=== PATIENT | female | born 1970 | race Caucasian/White ===

== ENCOUNTER 2020-12-02 03:47 | Inpatient (IN) | payer BC ==
[2020-12-02] MEDS ORDERED: NALOXONE 0.4 MG/ML 1 ML VIAL IV PRN (04:18)
[2020-12-02] MEDS ORDERED: HYDROmorphone 2 MG TAB PO PRN (04:18)
[2020-12-02] MEDS ORDERED: ONDANSETRON 4 MG/2 ML VIAL IVP PRN ×2 (04:18→09:06)
[2020-12-02] MEDS ORDERED: HYDROmorphone 0.5 MG/0.5 ML SYRINGE IVP PRN (04:18)
--- NOTE | 2020-12-02 04:24 | ED ---
Abdominal Pain HPI - General Chief Complaint: Abdominal Pain Stated Complaint: Abd Pain Time Seen by Provider: 12/02/20 03:58 Source: RN/MD, EMS Mode of arrival: EMS - History of Present Illness Initial Comments: This patient is a 50-year-old woman who arrives here as a transfer from [facility]. Patient has history of reportedly having Sonia-en-Y gastric bypass in [place] 10 years ago. She has not seen her surgeon in 7 years. She had gone there in the evening to be evaluated for abdominal pain. Patient states that she had eaten around 3 in the afternoon, and then noticed that she was having pain in the right upper quadrant, also developed nausea and vomiting. When the symptoms did not resolve she went to the other hospital. While there she had labs that showed white blood cell count 11,800. She had computed tomography scan that appeared to show small bowel obstruction at the surgical anastomosis. Patient had IV fluid, antiemetics, analgesics and then an NG tube placed and she was transferred here. The patient states that she is feeling moderately better however she has developed an aching headache. MD Complaint: abdominal pain Onset/Timin -: hour(s) Location: RUQ Radiation: none Migration to: no migration Severity: moderate Quality: aching Consistency: constant Improves With: nothing Worsens With: nothing Associated Symptoms: nausea, vomiting - Related Data Home Medications Medication Instructions Recorded Confirmed ALPRAZolam [Xanax] 0.5 mg PO TID PRN 12/02/20 12/02/20 Albuterol Sulfate [Proair Hfa] 1 - 2 puff INHALATION Q6HR PRN 12/02/20 12/02/20 Fluticasone/Salmeterol [Advair 1 inhalation PO BID 12/02/20 12/02/20 100-50 Diskus] Montelukast Sodium [Singulair] 10 mg PO HS 12/02/20 12/02/20 busPIRone HCl [Buspar] 10 mg PO DAILY 12/02/20 12/02/20 Allergies Allergy/AdvReac Type Severity Reaction Status Date / Time No Known Allergies Allergy Verified 12/02/20 03:55 Review of Systems ROS Statement: Those systems with pertinent positive or pertinent negative responses have been documented in the HPI. ROS Other: All systems not noted in ROS Statement are negative. Constitutional: Denies: fever, chills Eyes: Denies: eye pain, vision change Respiratory: Denies: cough, dyspnea Cardiovascular: Denies: chest pain, palpitations Gastrointestinal: Reports: abdominal pain, nausea, vomiting. Denies: diarrhea, hematemesis, melena, hematochezia Genitourinary: Denies: dysuria, hematuria Musculoskeletal: Denies: back pain Skin: Denies: rash Neurological: Reports: as per HPI, headache. Denies: weakness, numbness, paresthesias, confusion Past Medical History Past Medical History: No Reported History History of Any Multi-Drug Resistant Organisms: None Reported Past Surgical History: Bariatric Surgery, Tubal Ligation Past Psychological History: Anxiety Smoking Status: Former smoker Past Alcohol Use History: Occasional Past Drug Use History: None Reported General Exam General appearance: alert, in no apparent distress Head exam: Present: atraumatic, normocephalic Eye exam: Present: normal appearance. Absent: scleral icterus, conjunctival injection ENT exam: Present: normal oropharynx, other (NG tube in place) Neck exam: Present: normal inspection Respiratory exam: Present: normal lung sounds bilaterally. Absent: respiratory distress, wheezes, rales, rhonchi, stridor Cardiovascular Exam: Present: regular rate, normal rhythm, normal heart sounds. Absent: systolic murmur, diastolic murmur, rubs, gallop GI/Abdominal exam: Present: soft. Absent: distended, tenderness, guarding, rebound, rigid, mass Extremities exam: Present: normal inspection, normal capillary refill. Absent: pedal edema, calf tenderness Back exam: Present: normal inspection. Absent: tenderness, CVA tenderness (R), CVA tenderness (L) Neurological exam: Present: alert Skin exam: Present: warm, dry, intact, normal color. Absent: rash Course Vital Signs 12/02/20 03:50 Temperature 99.4 F Pulse Rate 85 Respiratory 16 Rate Blood Pressure 161/104 O2 Sat by Pulse 96 Oximetry Disposition Clinical Impression: Small bowel obstruction Disposition: ADMITTED IP TO THIS HOSP Condition: Fair Is patient prescribed a controlled substance at d/c from ED?: No Referrals: Alvin Rich MD [Primary Care Provider] - 1-2 days
[2020-12-02] MEDS ORDERED: HYDROmorphone 0.5 MG/0.5 ML SYRINGE IVP STA (04:27)
[2020-12-02] MEDS: SODIUM CHLORIDE 0.9% 1,000 ML IV SCH ×2 (05:46→14:49)
--- NOTE | 2020-12-02 05:53 | P.HPIM ---
History of Present Illness H&P Date: 12/02/20 Chief Complaint: repeated nausea and vomiting , abd pain 50 year old female with COPD, history of Sonia-en-Y surgery Age and comes in with sudden onset nausea or vomiting and abdominal pain she reports that her last meal was around 3 PM before that she was feeling completel y fine and then around evening time she started having severe right upper quadrant abdominal pain nonradiating severity sharp in nature associated with repeated nausea and vomiting and chills because of pain. Vomiting is nonbloody, nonbilious, it consisted of food particles of the spicy chips that she has. She claims that she is not passing gases denies any diarrhea. Otherwise she denies any fevers denies any coughing or chest pain denies any trouble breathing denies any sick contacts denies any urinary changes. She claims to be at her baseline status of health up until this evening. She went to [facility] who did initial workup patient received IV fluid and some supportive care., NG tube. Computed tomography scan suggested obstruction around surgical anastomosis site with the small bowel. Patient transferred to our facility for further care Blood work was overall unremarkable except for slightly elevated white count at 11.8 Review of Systems Pertinent positives as noted in HPI. All other systems were reviewed and are negative Past Medical History Past Medical History: COPD History of Any Multi-Drug Resistant Organisms: None Reported Past Surgical History: Bariatric Surgery, Tubal Ligation Past Psychological History: Anxiety Smoking Status: Former smoker Past Alcohol Use History: Occasional Past Drug Use History: None Reported - Past Family History Family Family Medical History: No Reported History Medications and Allergies Home Medications Medication Instructions Recorded Confirmed Type ALPRAZolam [Xanax] 0.5 mg PO TID PRN 12/02/20 12/02/20 History Albuterol Sulfate [Proair Hfa] 1 - 2 puff INHALATION Q6HR PRN 12/02/20 12/02/20 History Fluticasone/Salmeterol [Advair 1 inhalation PO BID 12/02/20 12/02/20 History 100-50 Diskus] Montelukast Sodium [Singulair] 10 mg PO HS 12/02/20 12/02/20 History busPIRone HCl [Buspar] 10 mg PO DAILY 12/02/20 12/02/20 History Allergies Allergy/AdvReac Type Severity Reaction Status Date / Time No Known Allergies Allergy Verified 12/02/20 03:55 Physical Exam Vitals: Vital Signs Temp Pulse Resp BP Pulse Ox 12/02/20 04:45 82 16 154/92 96 12/02/20 03:50 99.4 F 85 16 161/104 96 Intake and Output 12/01/20 12/01/20 12/02/20 14:59 22:59 06:59 Other: Weight 78.018 kg Constitutional: No acute distress, conversant, pleasant, NG tube in place Eyes: Anicteric sclerae, moist conjunctiva, Pupils equal round reactive to light ENMT: NC/AT Oropharynx clear, no erythema, or exudates Neck: Supple, FROM, no masses, or JVD No carotid bruits No thyromegaly Lungs: Clear to auscultation Clear to percussion Normal respiratory effort, no accessory muscle use Cardiovascular: Heart regular in rate and rhythm, No murmurs, gallops, or rubs No peripheral edema Abdominal: Soft Nontender, no guarding, rebound or rigidity Abdomen moving with respiration Hyperactive bowel sounds No hepatomegaly, No splenomegaly No palpable mass No abdominal wall hernia noted Skin: Normal temperature, tone, texture, turgor No induration No subcutaneous nodules No rash, lesions No ulcers Extremities: No digital cyanosis No clubbing Pedal pulses intact and symmetrical Radial pulses intact and symmetrical No calf tenderness Psychiatric: Alert and oriented to person, place and time Appropriate affect fair judgement Neuro Muscles Strength 5/5 in all 4 extremities Sensation to light touch grossly present throughout Cranial nerves II-XII grossly intact No focal sensory deficits Lymphatics: no palpable cervical or supraclavicular , or inguinal lymph nodes Assessment and Plan Assessment: Small bowel obstruction Supportive care IV fluid hydration Nothing by mouth IV PPI IV Dilaudid for pain control Surgery consult NG tube in place for low intermittent suctioning Follow-up labs metabolic panel COPD compensated Resume inhalers CODE STATUS: Full code DVT prophylaxis: Mechanical Discussed with: Patient, ER Anticipated length of stay more than [address]: Home A total of 65 minutes was spent on the care of this complex patient more than 50% of the time was spent in counseling and care coordination.
[2020-12-02] MEDS: HYDROmorphone 1 MG/ML 1 ML SYRINGE IVP PRN (08:49)
[2020-12-02] MEDS: PANTOPRAZOLE 40 MG/10 ML VIAL IV SCH (08:56)
[2020-12-02 08:57] LABS: ALT 24 U/L (4-34); AST 31 U/L (14-36); African American GFR (CKD) >90 (>60 ml/min/1.73 sqM); Albumin 3.7 g/dL (3.5-5.0); Alkaline Phosphatase 90 U/L (38-126); Anion Gap 6 mmol/L; Blood Urea Nitrogen 14 mg/dL (7-17); Calcium 8.9 mg/dL (8.4-10.2); Carbon Dioxide 22 mmol/L (22-30); Chloride 113 mmol/L (98-107); Glucose 88 mg/dL (74-99); Non-African American GFR(CKD) >90 (>60 ml/min/1.73 sqM); Potassium 4.3 mmol/L (3.5-5.1); Sodium 141 mmol/L (137-145); Total Bilirubin 0.4 mg/dL (0.2-1.3); Total Protein 6.1 g/dL (6.3-8.2)
[2020-12-02] MEDS ORDERED: PROPOFOL 10 MG/ML 20 ML VIAL IV ONE (09:05)
[2020-12-02 09:07] LABS: Basophils % (A) 1 %; Eosinophils # (A) 0.2 k/uL (0-0.7); Eosinophils % (A) 2 %; HCT 44.6 % (34.0-46.0); HGB 13.9 gm/dL (11.4-16.0); Lymphocytes % (A) 23 %; MCH 28.6 pg (25.0-35.0); MCHC 31.2 g/dL (31.0-37.0); MCV 91.6 fL (80.0-100.0); Mean Platelet Volume 6.6; Monocytes # (A) 0.4 k/uL (0-1.0); Monocytes % (A) 4 %; Neutrophils % (A) 69 %; Platelet Count 361 k/uL (150-450); RBC 4.88 m/uL (3.80-5.40); RDW 14.3 % (11.5-15.5); WBC 8.6 k/uL (3.8-10.6)
[2020-12-02] MEDS: SYMBICORT 80-4.5 MCG INHALER INHALATION SCH ×2 (09:07→19:34)
--- NOTE | 2020-12-02 11:43 | P.GSCN ---
History of Present Illness Consult date: 12/02/20 History of present illness: CHIEF COMPLAINT: Abdominal pain HISTORY OF PRESENT ILLNESS: This is a 50-year-old female with a known surgical history of Sonia-en-Y that was completed about 10 years ago in [place] by Dr. Blake. Patient states that she has followed up with Dr. Calle, his partner probably about 7 years ago. Patient also has a known medical history of COPD and depression. Patient was a transfer from [facility]. Patient reports that she started having right upper quadrant pain with nausea and vomiting around 3 PM yesterday. The pain continued to worsen she also is having chills. She went to the emergency room she was found to have elevated white count of 11.8. Computed tomography scan of the abdomen had shown small bowel obstruction at the surgical at the surgical anastomosis. She had NG tube inserted and was then transferred. Patient reports that when the NG tube was inserted she did have significant relief in her abdominal pain. She does have reports some nausea. She rates her pain about a 2 out of 10. And has passed some gas. Her last bowel movement was yesterday before her symptoms started. She reports her bowel movement was normal at that time. Denies any fevers. Denies any difficulty urinating. Denies any prior history of bowel obstruction. PAST MEDICAL HISTORY: See list. PAST SURGICAL HISTORY: See list. MEDICATIONS: See list. ALLERGIES: See list. SOCIAL HISTORY: No illicit drug use. REVIEW OF SYSTEMS: CONSTITUTIONAL: Denies fever or chills. HEENT: Denies blurred vision, vision changes, or eye pain. Denies hemoptysis CARDIOVASCULAR: Denies chest pain or pressure. RESPIRATORY: No shortness of breath. GASTROINTESTINAL: See HPI for pertinent findings HEMATOLOGIC: Denies bleeding disorders. GENITOURINARY: Denies any blood in urine or increased urinary frequency. SKIN: Denies pruitis. Denies rash. PHYSICAL EXAM: VITAL SIGNS: Reviewed GENERAL: Well-developed in no acute distress. HEENT: No sclera icterus. Extraocular movements grossly intact. Moist buccal mucosa. Head is atraumatic, normocephalic. No nasal drainage. ABDOMEN: Soft. Nondistended. No pain with palpation. Has NG tube in place NEUROLOGIC: Alert and oriented. Cranial nerves II through XII grossly intact. LABORATORY DATA: WBC 8.6 hemoglobin 11.9 platelets 361 sodium 141 potassium 4.3 creatinine 0.68 LFTs normal Influenza A, RSV and COVID-19 not detected IMAGING: ASSESSMENT: 1. Abdominal pain with CAT scan showing small bowel obstruction at the surgical anastomosis 2. History of Sonia-en-Y about 10 years ago PLAN: -Small bowel follow-through ordered for further evaluation of small bowel obstruction -Further recommendations forthcoming depending on small bowel follow-through re sults -Continue NG tube for decompression -Continue IV fluids -Continue antiemetics -Continue pain medication as needed Thank you for this consultation Physician Durable Medical Equipment Repairer note has been reviewed by physician. Signing provider agrees with the documented findings, assessment, and plan of care. Past Medical History Past Medical History: COPD History of Any Multi-Drug Resistant Organisms: None Reported Past Surgical History: Bariatric Surgery, Tubal Ligation Additional Past Surgical History / Comment(s): BARIATRIC SURGERY IN [place] 7 YRS AGO..DR CALLE Past Anesthesia/Blood Transfusion Reactions: No Reported Reaction Past Psychological History: Anxiety Smoking Status: Former smoker Past Alcohol Use History: Occasional Past Drug Use History: None Reported - Past Family History Family Family Medical History: No Reported History Medications and Allergies Home Medications Medication Instructions Recorded Confirmed Type Albuterol Sulfate [Proair Hfa] 2 puff INHALATION RT-Q4H PRN 12/02/20 12/02/20 History Fluticasone/Salmeterol [Advair 1 puff INHALATION RT-BID 12/02/20 12/02/20 History 100-50 Diskus] Loratadine [Claritin] 10 mg PO DAILY 12/02/20 12/02/20 History Montelukast Sodium [Singulair] 10 mg PO HS 12/02/20 12/02/20 History Multivitamins, Thera [Multivitamin 1 tab PO DAILY 12/02/20 12/02/20 History (formulary)] busPIRone HCl [Buspar] 10 mg PO HS 12/02/20 12/02/20 History Allergies Allergy/AdvReac Type Severity Reaction Status Date / Time No Known Allergies Allergy Verified 12/02/20 03:55 Surgical - Exam Vital Signs Temp Pulse Resp BP Pulse Ox 99.4 F 85 16 161/104 96 12/02/20 03:50 12/02/20 03:50 12/02/20 03:50 12/02/20 03:50 12/02/20 03:50 Results - Labs 12/02/20 08:23 12/02/20 08:23 Abnormal Lab Results - Last 24 Hours (Table) 12/02/20 Range/Units 08:23 Chloride 113 H (98-107) mmol/L Total Protein 6.1 L (6.3-8.2) g/dL Diabetes panel 12/02/20 Range/Units 08:23 Sodium 141 (137-145) mmol/L Potassium 4.3 (3.5-5.1) mmol/L Chloride 113 H (98-107) mmol/L Carbon Dioxide 22 (22-30) mmol/L BUN 14 (7-17) mg/dL Creatinine 0.68 (0.52-1.04) mg/dL Glucose 88 (74-99) mg/dL Calcium 8.9 (8.4-10.2) mg/dL AST 31 (14-36) U/L ALT 24 (4-34) U/L Alkaline Phosphatase 90 (38-126) U/L Total Protein 6.1 L (6.3-8.2) g/dL Albumin 3.7 (3.5-5.0) g/dL Calcium panel 12/02/20 Range/Units 08:23 Calcium 8.9 (8.4-10.2) mg/dL Albumin 3.7 (3.5-5.0) g/dL Pituitary panel 12/02/20 Range/Units 08:23 Sodium 141 (137-145) mmol/L Potassium 4.3 (3.5-5.1) mmol/L Chloride 113 H (98-107) mmol/L Carbon Dioxide 22 (22-30) mmol/L BUN 14 (7-17) mg/dL Creatinine 0.68 (0.52-1.04) mg/dL Glucose 88 (74-99) mg/dL Calcium 8.9 (8.4-10.2) mg/dL Adrenal panel 12/02/20 Range/Units 08:23 Sodium 141 (137-145) mmol/L Potassium 4.3 (3.5-5.1) mmol/L Chloride 113 H (98-107) mmol/L Carbon Dioxide 22 (22-30) mmol/L BUN 14 (7-17) mg/dL Creatinine 0.68 (0.52-1.04) mg/dL Glucose 88 (74-99) mg/dL Calcium 8.9 (8.4-10.2) mg/dL Total Bilirubin 0.4 (0.2-1.3) mg/dL AST 31 (14-36) U/L ALT 24 (4-34) U/L Alkaline Phosphatase 90 (38-126) U/L Total Protein 6.1 L (6.3-8.2) g/dL Albumin 3.7 (3.5-5.0) g/dL
[2020-12-02] MEDS ORDERED: ACETAMINOPHEN IV (For NPO) 1,000 MG in EMPTY BAG 1 BAG IVPB SCH (12:00)
[2020-12-02] MEDS: BENZOCAINE SPRAY 1 CAN MUCOUS MEM PRN ×2 (14:49→17:54)
[2020-12-02] MEDS: ACETAMINOPHEN IV (For NPO) 1,000 MG in EMPTY BAG 1 BAG IVPB SCH ×2 (14:50→21:02)
--- NOTE | 2020-12-02 17:08 | P.PN ---
Progress Note - Text Progress Note Date: 12/02/20 Patient seen and evaluated at bedside today. I agree with the assessment and plan as documented by my colleague earlier this morning. Patient has significant apprehension regarding small bowel series due to her uncle having passed due to complications from aspirating the contrast. I discussed this with surgery and they are okay with deferring the test since patient is clinically improving with NGT in terms of pain, nausea, and is now passing flatus, but no BM. Over the weekend this test is not available, and if surgery were to be required patient may warrant transfer to a tertiary facility if her clinical improvement does not continue. When speaking to the patient, she is okay with doing a small bowel series if needed, but would like to wait to see if her symptoms continue to improve on their own and with NGT, medical management. Should her clinical condition worsen acutely, we can re-address most appropriate care plan with surgery service whose expertise is much appreciated in this complicated patient.
[2020-12-02] MEDS ORDERED: WATER FOR INJECTION, STERILE 10 ML IV ONE (18:35)
[2020-12-02] MEDS: LORazepam 2 MG/ML INJ IV PRN (18:55)
[2020-12-03] MEDS: LORazepam 2 MG/ML INJ IV PRN ×2 (01:59→20:37)
[2020-12-03] MEDS: ACETAMINOPHEN IV (For NPO) 1,000 MG in EMPTY BAG 1 BAG IVPB SCH ×2 (02:03→08:33)
[2020-12-03] MEDS: SODIUM CHLORIDE 0.9% 1,000 ML IV SCH ×3 (02:04→23:16)
[2020-12-03 06:49] LABS: Basophils # (A) 0.1 k/uL (0-0.2); Basophils % (A) 1 %; Eosinophils # (A) 0.2 k/uL (0-0.7); Eosinophils % (A) 3 %; Lymphocytes # (A) 1.4 k/uL (1.0-4.8); Lymphocytes % (A) 17 %; MCH 29.8 pg (25.0-35.0); MCHC 33.3 g/dL (31.0-37.0); MCV 89.4 fL (80.0-100.0); Mean Platelet Volume 7.3; Monocytes # (A) 0.4 k/uL (0-1.0); Monocytes % (A) 5 %; Neutrophils # (A) 6.4 k/uL (1.3-7.7); Neutrophils % (A) 75 %; Platelet Count 303 k/uL (150-450); RBC 4.37 m/uL (3.80-5.40); RDW 13.6 % (11.5-15.5); WBC 8.7 k/uL (3.8-10.6)
[2020-12-03 07:10] LABS: ALT 18 U/L (4-34); AST 24 U/L (14-36); African American GFR (CKD) >90 (>60 ml/min/1.73 sqM); Albumin 3.4 g/dL (3.5-5.0); Alkaline Phosphatase 94 U/L (38-126); Anion Gap 8 mmol/L; Blood Urea Nitrogen 9 mg/dL (7-17); Carbon Dioxide 20 mmol/L (22-30); Chloride 111 mmol/L (98-107); Glucose 80 mg/dL (74-99); Non-African American GFR(CKD) >90 (>60 ml/min/1.73 sqM); Sodium 139 mmol/L (137-145); Total Bilirubin 0.4 mg/dL (0.2-1.3); Total Protein 5.6 g/dL (6.3-8.2)
[2020-12-03] MEDS: PANTOPRAZOLE 40 MG/10 ML VIAL IV SCH (08:32)
[2020-12-03] MEDS: SYMBICORT 80-4.5 MCG INHALER INHALATION SCH ×2 (08:52→20:21)
--- NOTE | 2020-12-03 12:20 | P.PN ---
Subjective Progress Note Date: 12/03/20 Feels okay, nauseated but no vomiting. Passing flatus. Remains afebrile. NG tube in place Objective - Vital Signs Vital signs: Vital Signs Temp 98.6 F 12/03/20 08:15 Pulse 78 12/03/20 08:15 Resp 16 12/03/20 08:15 BP 153/84 12/03/20 08:15 Pulse Ox 97 12/03/20 08:15 Intake & Output 12/02/20 12/03/20 12/03/20 18:59 06:59 18:59 Intake Total 375 875 Output Total 510 745 Balance -135 130 Weight 78.018 kg Intake: Intake, IV Titration 375 875 Amount Sodium Chloride 0.9% 1, 375 875 000 ml @ 125 mls/hr IV . Q8H [facility] Rx#:[id number] Output: Gastric Drainage 245 Urine 510 500 Other: Voiding Method Toilet # Voids 1 1 - Exam Constitutional: No acute distress, conversant, pleasant Eyes: Anicteric sclerae, moist conjunctiva ENMT: NC/AT, NG tube in place Neck:Supple, FROM, no masses, or JVD Lungs: Clear to auscultation, Clear to percussion, Normal respiratory effort, no accessory muscle use Cardiovascular: Heart regular in rate and rhythm, No murmurs, gallops, or rubs no peripheral edema Abdominal: Soft Nontender, nom distended, no guarding, no rebound or rigidity Skin: Normal temperature, tone, texture, turgor, No induration Extremities:No digital cyanosis No clubbing, no edema Psychiatric: Alert and oriented to person, place and time, Appropriate affect Intact judgement Neuro: Muscles Strength 5/5 in all 4 extremities, Sensation to light touch grossly present throughout, Cranial nerves II-XII grossly intact. No focal sensory deficits - Labs CBC & Chem 7: 12/03/20 06:07 12/03/20 06:07 Labs: Abnormal Lab Results - Last 24 Hours (Table) 12/03/20 Range/Units 06:07 Chloride 111 H (98-107) mmol/L Carbon Dioxide 20 L (22-30) mmol/L Total Protein 5.6 L (6.3-8.2) g/dL Albumin 3.4 L (3.5-5.0) g/dL Assessment and Plan Plan: 1. Small bowel obstruction at the surgical anastomoses: Appreciate surgery input, continue conservative treatment, NG tube IV fluids antiemetics and pain control. Continue to encourage ambulation decrease normal saline to 75 mL per hour 2. History of Sonia-en-Y about 10 years ago: Supportive care 3. COPD compensated without evidence of withdrawal, continue oxygen a broken that it is as indicated 4. Anxiety: When necessary Ativan CODE STATUS: Full code DVT prophylaxis: SCDs Discussed with: Patient, nurse Anticipated discharge place: Home in 2-3 days
[2020-12-03] MEDS ORDERED: OFIRMEV PER PHARMACY MISCELLANE PRN (13:39)
[2020-12-03] MEDS: ACETAMINOPHEN IV (For NPO) 1,000 MG in EMPTY BAG 1 BAG IVPB PRN ×2 (13:56→23:15)
--- NOTE | 2020-12-03 17:56 | P.PN ---
Subjective Progress Note Date: 12/03/20 CHIEF COMPLAINT: Bowel obstruction HISTORY OF PRESENT ILLNESS: The patient is a 50 year old female status post gastric bypass at [facility] [address]. She reports initial right upper quadrant abdominal pain and epigastric pain. She has past history of gallbladder problems over 30 years ago. She has not followed up with a bariatric provider for over 7 years as she was being managed by Dr Grubbs. She had been lost to follow up as she felt healthy. Her highest weight was 250 pounds. Her lowest weight was 129 pounds. She has gained moderate weight since the pandemic. She reports acute onset abdominal pain , 3 days ago that she has not had before. She denies any prior events. Since admission her abdominal has improved. She denies any need for pain medications other than Tylenol. She is admitted following abnormal CT scan for anastomatic obstruction from her gastric bypass. REVIEW OF ORGAN SYSTEMS: No chest pain, no shortness of breath. No nausea or vomiting. PHYSICAL EXAM: VITALS: Reviewed CONSTITUTIONAL: Well developed and in no acute distress. EYES: Conjuctivae without sclera icterus. Extraocular movements grossly intact. HEAD, EARS, NOSE, THROAT: Moist buccal mucosa. Head is atraumatic, normocephalic. Hears conversational speech. RESPIRATORY: Non-labored respirations and equal bilateral excursions. No gross wheezes. CARDIOVASCULAR: Regular rate and rhythm. Palpable 2+ radial pulses. ABDOMEN: Nontender. Soft. NEUROLOGIC: Cranial nerves II through XII grossly intact. No focal or lateralizing signs. PSYCH: Alert to person, place and time. CLINCAL LABS: Reviewed. WBC normal. STUDIES: CT of the abdomen and pelvis independent review demonstrating edema at the gastric pouch. Multiple suture lines along the proximal stomach consistent with gastric bypass. No free air identified. This is my independent interpret ation of outside film. ASSESSMENT: 1. Small bowel obstruction 2. Right upper quadrant abdominal pain. 3. Cholecystitis 4. History of gastric bypass PLAN: 1. Recommend US gallbladder as she complains primarily of right upper quadrant abdominal pain with past history of gallbladder attacks and risk of cholecystitis 2. Trial of liquids following US gallbladder. Objective - Vital Signs Vital signs: Vital Signs Temp 98.3 F 12/03/20 14:25 Pulse 80 12/03/20 14:25 Resp 16 12/03/20 14:25 BP 136/82 12/03/20 14:25 Pulse Ox 97 12/03/20 14:25 Intake & Output 12/02/20 12/03/20 12/03/20 18:59 06:59 18:59 Intake Total 375 875 Output Total 510 745 400 Balance -135 130 -400 Weight 78.018 kg Intake: Intake, IV Titration 375 875 Amount Sodium Chloride 0.9% 1, 375 875 000 ml @ 125 mls/hr IV . Q8H [facility] Rx#:[id number] Output: Gastric Drainage 245 Urine 510 500 400 Other: Voiding Method Toilet # Voids 1 1 1 - Labs CBC & Chem 7: 12/04/20 05:14 12/04/20 05:14 Labs: Abnormal Lab Results - Last 24 Hours (Table) 12/03/20 Range/Units 06:07 Chloride 111 H (98-107) mmol/L Carbon Dioxide 20 L (22-30) mmol/L Total Protein 5.6 L (6.3-8.2) g/dL Albumin 3.4 L (3.5-5.0) g/dL
--- NOTE | 2020-12-03 18:54 | US ---
EXAMINATION TYPE: US gallbladder DATE OF EXAM: 12/03/2020 COMPARISON: Outside CT on PACS. CLINICAL HISTORY: acute cholecystitis. EXAM MEASUREMENTS: Liver Length: 12.9 cm Gallbladder Wall: 0.2 cm CBD: 0.5 cm Right Kidney: 10.8 x 4.5 x 5.2 cm Pancreas: wnl Liver: wnl Gallbladder: No stones seen Evidence for sonographic Moore's sign: No CBD: wnl Right Kidney: No hydronephrosis or masses seen IMPRESSION: Negative exam. No gallstones or dilated ducts. No evidence of cholecystitis.
[2020-12-04 06:29] LABS: Basophils % (A) 1 %; Eosinophils # (A) 0.3 k/uL (0-0.7); Eosinophils % (A) 4 %; HCT 39.1 % (34.0-46.0); HGB 12.9 gm/dL (11.4-16.0); Lymphocytes # (A) 1.3 k/uL (1.0-4.8); Lymphocytes % (A) 18 %; MCH 29.6 pg (25.0-35.0); MCHC 33.1 g/dL (31.0-37.0); MCV 89.4 fL (80.0-100.0); Mean Platelet Volume 6.8; Monocytes # (A) 0.3 k/uL (0-1.0); Monocytes % (A) 4 %; Neutrophils # (A) 5.5 k/uL (1.3-7.7); Neutrophils % (A) 73 %; Platelet Count 312 k/uL (150-450); RBC 4.38 m/uL (3.80-5.40); RDW 13.6 % (11.5-15.5); WBC 7.6 k/uL (3.8-10.6)
[2020-12-04 06:41] LABS: ALT 15 U/L (4-34); AST 22 U/L (14-36); African American GFR (CKD) >90 (>60 ml/min/1.73 sqM); Albumin 3.3 g/dL (3.5-5.0); Alkaline Phosphatase 88 U/L (38-126); Anion Gap 11 mmol/L; Blood Urea Nitrogen 8 mg/dL (7-17); Calcium 8.9 mg/dL (8.4-10.2); Carbon Dioxide 17 mmol/L (22-30); Chloride 110 mmol/L (98-107); Glucose 62 mg/dL (74-99); Non-African American GFR(CKD) >90 (>60 ml/min/1.73 sqM); Potassium 4.2 mmol/L (3.5-5.1); Sodium 138 mmol/L (137-145); Total Bilirubin 0.4 mg/dL (0.2-1.3); Total Protein 5.4 g/dL (6.3-8.2)
[2020-12-04] MEDS: SODIUM CHLORIDE 0.9% 1,000 ML IV SCH ×3 (08:00→09:21)
[2020-12-04] MEDS: PANTOPRAZOLE 40 MG/10 ML VIAL IV SCH (08:01)
[2020-12-04] MEDS: ACETAMINOPHEN IV (For NPO) 1,000 MG in EMPTY BAG 1 BAG IVPB PRN (08:07)
[2020-12-04] MEDS: SYMBICORT 80-4.5 MCG INHALER INHALATION SCH ×2 (08:42→20:11)
--- NOTE | 2020-12-04 11:23 | P.PN ---
Subjective Progress Note Date: 12/04/20 Feels better today, NG tube clamped. No nausea no vomiting. Continues to pass flatus, normal bowel 1. Objective - Vital Signs Vital signs: Vital Signs Temp 98.8 F 12/04/20 08:30 Pulse 66 12/04/20 08:30 Resp 16 12/04/20 08:30 BP 151/83 12/04/20 08:30 Pulse Ox 96 12/04/20 08:30 Intake & Output 12/03/20 12/04/20 12/04/20 18:59 06:59 18:59 Intake Total 120 Output Total 1100 600 Balance -1100 120 -600 Intake: Oral 120 Output: Gastric Drainage 350 Urine 750 600 Other: Voiding Method Toilet Toilet # Voids 1 1 2 - Exam Constitutional: No acute distress, conversant, pleasant Eyes: Anicteric sclerae, moist conjunctiva ENMT: NC/AT, NG tube in place Neck:Supple, FROM, no masses, or JVD Lungs: Clear to auscultation, Clear to percussion, Normal respiratory effort, no accessory muscle use Cardiovascular: Heart regular in rate and rhythm, No murmurs, gallops, or rubs no peripheral edema Abdominal: Soft Nontender, non distended, no guarding Skin: Normal temperature, tone, texture, turgor, No induration Extremities:No digital cyanosis No clubbing, no edema Psychiatric: Alert and oriented to person, place and time, Appropriate affect Intact judgement Neuro: Muscles Strength 5/5 in all 4 extremities, Cranial nerves II-XII grossly intact. No focal sensory deficits - Labs CBC & Chem 7: 12/04/20 05:14 12/04/20 05:14 Labs: Abnormal Lab Results - Last 24 Hours (Table) 12/04/20 Range/Units 05:14 Chloride 110 H (98-107) mmol/L Carbon Dioxide 17 L (22-30) mmol/L Glucose 62 L (74-99) mg/dL Total Protein 5.4 L (6.3-8.2) g/dL Albumin 3.3 L (3.5-5.0) g/dL Assessment and Plan Plan: 1. Small bowel obstruction at the surgical anastomoses: Appreciate surgery input, conservative treatment, NG tube IV fluids antiemetics and pain control. Continue to encourage ambulation normal saline to 75 mL per hour. Gallbladder ultrasound. 2. History of Sonia-en-Y about 10 years ago: Supportive care 3. COPD compensated without evidence of withdrawal, continue oxygen a broken that it is as indicated 4. Anxiety: When necessary Ativan 5. Metabolic acidosis: Bicarbonate down to 17, monitor closely. CODE STATUS: Full code DVT prophylaxis: SCDs Discussed with: Patient, nurse Anticipated discharge place: Home in 2-3 days
--- NOTE | 2020-12-04 16:42 | P.PN ---
Subjective Progress Note Date: 12/04/20 CHIEF COMPLAINT: Bowel obstruction HISTORY OF PRESENT ILLNESS: The patient is a 50 year old female status post gastric bypass at [facility] [place] [address] Blake. She reports developed acute onset abdominal pain now 3 days ago. She had a nasogastric tube placed. She is passing flatus. She is tolerating liquids. She reports history of troubles with epigastric pain following textured foods such as steak and chicken. She reports minimal abdominal cramping with liquids. REVIEW OF ORGAN SYSTEMS: No chest pain, no shortness of breath. No nausea or vomiting. PHYSICAL EXAM: VITALS: Reviewed CONSTITUTIONAL: Well developed and in no acute distress. EYES: Conjuctivae without sclera icterus. Extraocular movements grossly intact. HEAD, EARS, NOSE, THROAT: Moist buccal mucosa. Head is atraumatic, normocephalic. Hears conversational speech. RESPIRATORY: Non-labored respirations and equal bilateral excursions. No gross wheezes. CARDIOVASCULAR: Regular rate and rhythm. Palpable 2+ radial pulses. ABDOMEN: Nontender. Soft. NEUROLOGIC: Cranial nerves II through XII grossly intact. No focal or lateralizing signs. MUSCULOSKELETAL: No clubbing cyanosis or edema. PSYCH: Alert to person, place and time. SKIN: We'll perfuse. Good skin turgor. CLINCAL LABS: Reviewed. WBC normal at 7.6. LFTs normal. STUDIES: Ultrasound the gallbladder independently reviewed demonstrating a fold along the infundibulum of the gallbladder. No large gallstones identified. No gallbladder wall thickening. This is my independent interpretation. REPORT: Ultrasound report confirms, bile duct 5 mm. ASSESSMENT: 1. Small bowel obstruction 2. Right upper quadrant abdominal pain. 3. History of gastric bypass PLAN: 1. She is tolerating liquid diet. Will advance to consistent carb diet for trial of diet. 2. Additionally, she reports features consistent with gastrojejunal anastomotic stricture which would benefit from upper endoscopy with balloon dilation. 3. Will reevaluate tomorrow for diagnostic laparoscopy with robotic lysis of adhesions described. Objective - Vital Signs Vital signs: Vital Signs Temp 98.4 F 12/04/20 14:00 Pulse 73 12/04/20 14:00 Resp 16 12/04/20 14:00 BP 162/93 12/04/20 14:00 Pulse Ox 98 12/04/20 14:00 Intake & Output 12/03/20 12/04/20 12/04/20 18:59 06:59 18:59 Intake Total 120 870 Output Total 1100 600 Balance -1100 120 270 Intake: Oral 120 870 Output: Gastric Drainage 350 Urine 750 600 Other: Voiding Method Toilet Toilet # Voids 1 1 2 - Labs CBC & Chem 7: 12/04/20 05:14 12/04/20 05:14 Labs: Abnormal Lab Results - Last 24 Hours (Table) 12/04/20 Range/Units 05:14 Chloride 110 H (98-107) mmol/L Carbon Dioxide 17 L (22-30) mmol/L Glucose 62 L (74-99) mg/dL Total Protein 5.4 L (6.3-8.2) g/dL Albumin 3.3 L (3.5-5.0) g/dL
[2020-12-04] MEDS ORDERED: ACETAMINOPHEN TAB 325 MG TAB PO STA (20:17)
[2020-12-04] MEDS: diphenhydrAMINE 25 MG CAP PO SCH (20:45)
[2020-12-05 06:41] LABS: Basophils % (A) 0 %; Eosinophils # (A) 0.4 k/uL (0-0.7); Eosinophils % (A) 6 %; HCT 38.2 % (34.0-46.0); HGB 12.4 gm/dL (11.4-16.0); Lymphocytes # (A) 1.3 k/uL (1.0-4.8); Lymphocytes % (A) 19 %; MCH 28.8 pg (25.0-35.0); MCHC 32.6 g/dL (31.0-37.0); MCV 88.5 fL (80.0-100.0); Mean Platelet Volume 6.5; Monocytes # (A) 0.4 k/uL (0-1.0); Monocytes % (A) 5 %; Neutrophils # (A) 4.5 k/uL (1.3-7.7); Neutrophils % (A) 68 %; Platelet Count 325 k/uL (150-450); RBC 4.31 m/uL (3.80-5.40); RDW 13.8 % (11.5-15.5); WBC 6.6 k/uL (3.8-10.6)
[2020-12-05 06:55] LABS: ALT 13 U/L (4-34); AST 20 U/L (14-36); African American GFR (CKD) >90 (>60 ml/min/1.73 sqM); Albumin 3.1 g/dL (3.5-5.0); Alkaline Phosphatase 84 U/L (38-126); Anion Gap 6 mmol/L; Blood Urea Nitrogen 5 mg/dL (7-17); Calcium 8.8 mg/dL (8.4-10.2); Carbon Dioxide 23 mmol/L (22-30); Chloride 110 mmol/L (98-107); Glucose 92 mg/dL (74-99); Non-African American GFR(CKD) >90 (>60 ml/min/1.73 sqM); Potassium 3.7 mmol/L (3.5-5.1); Sodium 139 mmol/L (137-145); Total Bilirubin 0.3 mg/dL (0.2-1.3); Total Protein 5.2 g/dL (6.3-8.2)
[2020-12-05] MEDS ORDERED: ALBUTEROL NEBULIZED 2.5 MG/3 ML INHALATION PRN (07:15)
[2020-12-05] MEDS: SYMBICORT 80-4.5 MCG INHALER INHALATION SCH ×2 (07:52→21:08)
[2020-12-05] MEDS: ALBUTEROL INHALATION PRN (07:55)
[2020-12-05] MEDS: PANTOPRAZOLE 40 MG/10 ML VIAL IV SCH (08:11)
[2020-12-05] MEDS: SODIUM CHLORIDE 0.9% 1,000 ML IV SCH ×4 (08:12→21:00)
[2020-12-05] MEDS ORDERED: IV FLUID CONTINUATION 1,000 ML IV ONE (09:03)
--- NOTE | 2020-12-05 09:25 | P.PCN ---
Date of Procedure: 12/05/20 Description of Procedure: PREOPERATIVE DIAGNOSIS: Dysphagia. Epigastric abdominal pain POSTOPERATIVE DIAGNOSIS: Dysphagia. Epigastric abdominal pain Gastrojejunal stricture with chronic ulcer without perforation Gastritis OPERATION: Esophagogastrojejunoscopy with balloon dilatation from 15 to 20 mm. Esophagogastrojejunoscopy with cold forceps biopsies gastric pouch SURGEON: Alda Nuno MD ANESTHESIA: MAC. INDICATIONS: The patient is a 50-year-old female who presents with a history of dysphagia, including nausea and vomiting. Benefits and risks of the procedure were described. Informed consent was obtained. DESCRIPTION: The patient was brought into the endoscopy suite and laid in the left lateral decubitus position. After a timeout was confirmed, the procedure was initiated. An Olympus gastroscope was passed along the posterior oropharynx down to the distal esophagus where the squamocolumnar junction was unremarkable. The gastric pouch was entered. A gastrojejunal stricture of 15 mm was found as the adult gastroscope was 9.5 mm in size. A [employer] balloon dilator was placed through the scope. Final insufflation up to 20 mm was performed with a total of 2 minutes. The scope was advanced up to 60 cm from the incisors into the Sonia limb. Gastritis is identified along the gastric pouch and cold forceps biopsies were obtained. The mucosa of the gastrojejunal anastomosis was intact. However chronic gastrojejunal marginal ulcer was encountered. No full-thickn ess injury was encountered. The GI tract was desufflated. The patient tolerated the procedure well. FINDINGS: Squamocolumnar junction unremarkable at 37 cm. Stricture of approximately 15 mm encountered. Chronic gastrojejunal ulceration encountered. Successful balloon dilatation to 15 mm. Cold forceps biopsies of gastric pouch obtained for gastritis RECOMMENDATIONS: Liquid diet. Upper endoscopy as needed.
--- NOTE | 2020-12-05 09:26 | P.HPADDEND ---
H&P Addendum H&P Addendum Date: 12/05/20 Patient a trial of Dykes to report intermittent abdominal cramps. Upper endoscopy performed. Will proceed with robotic lysis of adhesions.
[2020-12-05] MEDS: LORATADINE 10 MG TAB PO SCH (09:43)
--- NOTE | 2020-12-05 14:02 | P.PN ---
Subjective Progress Note Date: 12/05/20 Feels better today, No nausea no vomiting. Continues to pass flatus, had a small BM today Objective - Vital Signs Vital signs: Vital Signs Temp 98.5 F 12/05/20 10:00 Pulse 68 12/05/20 11:30 Resp 18 12/05/20 11:30 BP 152/92 12/05/20 11:30 Pulse Ox 99 12/05/20 11:30 Intake & Output 12/04/20 12/05/20 12/05/20 18:59 06:59 18:59 Intake Total 870 60 100 Output Total 600 Balance 270 60 100 Intake: IV 100 Oral 870 60 Output: Urine 600 Other: Voiding Method Toilet Toilet # Voids 2 # Bowel Movements 1 - Exam Constitutional: No acute distress, conversant, pleasant Eyes: Anicteric sclerae, moist conjunctiva ENMT: NC/AT Neck:Supple, FROM Lungs: Clear to auscultation, Clear to percussion, Normal respiratory effort, no accessory muscle use Cardiovascular: Heart regular in rate and rhythm, No murmurs, gallops, or rubs no peripheral edema Abdominal: Soft Nontender, non distended, no guarding Skin: Normal temperature Extremities:No digital cyanosis No clubbing, no edema Psychiatric: Alert and oriented to person, place and time, Appropriate affect Intact judgement Neuro: Muscles Strength 5/5 in all 4 extremities, Cranial nerves II-XII grossly intact. No focal sensory deficits - Labs CBC & Chem 7: 12/05/20 06:16 12/05/20 06:16 Labs: Abnormal Lab Results - Last 24 Hours (Table) 12/05/20 Range/Units 06:16 Chloride 110 H (98-107) mmol/L BUN 5 L (7-17) mg/dL Total Protein 5.2 L (6.3-8.2) g/dL Albumin 3.1 L (3.5-5.0) g/dL Assessment and Plan Plan: 1. Small bowel obstruction at the surgical anastomoses: Appreciate surgery input, conservative treatment, IV fluids antiemetics and pain control. Continue to encourage ambulation normal saline to 75 mL per hour. plan for surgery today 2. History of Sonia-en-Y about 10 years ago: Supportive care 3. COPD compensated without evidence of withdrawal, continue oxygen a broken that it is as indicated 4. Anxiety: When necessary Ativan 5. Metabolic acidosis: Bicarbonate down to 17, resolved 6. Gastrojejunal stricture with chronic ulcer without perforation Gastritis post EGD. CODE STATUS: Full code DVT prophylaxis: SCDs Discussed with: Patient, nurse Anticipated discharge place: Home in 1-2 days
[2020-12-05] MEDS ORDERED: IV FLUID CONTINUATION 500 ML IV ONE (16:50)
[2020-12-05] MEDS ORDERED: MIDAZOLAM 2 MG/2 ML VIAL IV ONE (17:40)
[2020-12-05] MEDS ORDERED: ONDANSETRON 4 MG/2 ML VIAL IVP ONE (17:40)
[2020-12-05] MEDS ORDERED: HEPARIN SODIUM,PORCINE 5,000 UNIT/ML 1 ML VIAL SQ ONE (17:41)
[2020-12-05] MEDS ORDERED: HEPARIN SODIUM,PORCINE/PF 5,000 UNIT/0.5 ML SYRINGE SQ ONE (17:46)
[2020-12-05] MEDS ORDERED: LIDOCAINE 1% INJ 10MG/ML (20 ML MDV) ONE (18:09)
[2020-12-05] MEDS ORDERED: GLYCOPYRROLATE 0.2 MG/ML 2 ML VIAL ONE (18:09)
[2020-12-05] MEDS ORDERED: fentaNYL (PF) 50 MCG/ML 2 ML AMP ONE (18:09)
[2020-12-05] MEDS ORDERED: MIDAZOLAM 2 MG/2 ML VIAL ONE (18:09)
[2020-12-05] MEDS ORDERED: HYDROmorphone (PF) 1 MG/ML ONE (18:09)
[2020-12-05] MEDS ORDERED: ROCURONIUM 10 MG/ML (5 ML VIAL) IV ONE (18:09)
[2020-12-05] MEDS ORDERED: SUCCINYLCHOLINE CHLORIDE 100 MG/5 ML SYR IV ONE (18:09)
[2020-12-05] MEDS ORDERED: PROPOFOL 10 MG/ML 20 ML VIAL IV ONE (18:09)
[2020-12-05] MEDS ORDERED: NEOSTIGMINE 1 MG/ML 10 ML VIAL ONE (18:09)
[2020-12-05] MEDS ORDERED: BUPIVACAIN-EPI 0.5%-1:200,000 30 ML VIAL SQ ONE (18:37)
[2020-12-05] MEDS ORDERED: LACTATED RINGERS 1,000 ML IV ONE (18:50)
[2020-12-05] MEDS ORDERED: NALOXONE 0.4 MG/ML 1 ML VIAL IV PRN (19:34)
--- NOTE | 2020-12-05 19:49 | P.OP ---
Date of Procedure: 12/05/20 Description of Procedure: SURGEON: HARDIK DELAROSA MD PREOPERATIVE DIAGNOSES: 1. Epigastric abdominal pain including generalized abdominal pain 2. Abnormal computed tomography scan for anastomotic obstruction 3. History of gastric bypass 4. Small bowel obstruction 5. Chronic obstructive pulmonary disease 6. Depressive disorder 7. Anxiety disorder POSTOPERATIVE DIAGNOSES: 1. Epigastric abdominal pain including generalized abdominal pain 2. Abnormal computed tomography scan for anastomotic obstruction 3. History of gastric bypass 4. Small bowel obstruction 5. Chronic obstructive pulmonary disease 6. Depressive disorder 7. Anxiety disorder 8. Omental adhesions abdominal wall 9. Peritoneal adhesions OPERATION: 1. Robotic-assisted da Jocy Xi laparoscopic with extensive lysis of adhesions 1 hr ESTIMATED BLOOD LOSS: 5 mL. SPECIMENS REMOVED: None. COMPLICATIONS: None. OPERATIVE FINDINGS: 1. Retroperitoneal tethering from adhesions attached to distal terminal ileum creating functional obstruction, completely lysed 2. Redundant sigmoid colon with omega loop 3. Anastomotic obstruction along jejunojejunostomy due to greater omental adhesions intertwined with the small intestine to the retroperitoneum, completely lysed 4. Features of antecolic antegastric Sonia-en-Y gastric 5. Jejunojejunostomy mesenteric defect scarred 6. No small bowel herniation along Pennington's defect gastric bypass 7. Thickened gallbladder wall suspicious for chronic cholecystitis INDICATIONS: The patient is a 50-year-old female who presents with epigastric abdominal pain including small bowel obstruction with abnormal findings and computed tomography scan. She has history of gastric bypass with high risk of internal hernia and adhesions. Surgical intervention with diagnostic laparoscopy, lysis of adhesions were described. Informed consent was obtained. Robotic assisted laparoscopic approach was described. Benefits and risks of the procedure including but not limited to bleeding, infection, injury to the small bowel was described. Informed consent was obtained. DESCRIPTION OF PROCEDURE: Patient was brought to the operating room, placed in supine position. After general induction, the abdomen had been prepped and draped in standard sterile fashion. The robotic da Jocy XI system was primed. After a timeout protocol was performed, the patient had been prepped and draped in standard sterile fashion. The robot was docked along the right lateral abdomen. The patient was repositioned in with right side up. Please note prior to docking of the robot; however, a 5 mm 0 degrees laparoscopic trocar entry was performed along the left upper quadrant. The abdomen was insufflated to 15 mmHg pressure which she tolerated well. Diagnostic laparoscopy was performed. Next, three 8 mm robotic ports were placed along the right lateral abdominal wa ll. The camera 8-mm port was maintained along mid-lateral abdomen. Please note that the ports were placed at least 10 to 15 cm away from the target anatomy. Instruments including graspers and vessel sealer were interchanged by the creative assistant. I had sat at the console. No evidence of incisional hernia was identified. Mesenteric creeping fat was identified along the terminal ileum however without edema. The small bowel from the sonia limb to distal ileum was inspected. The small bowel otherwise common channel, was investigated from the terminal ileum to the ligament of Treitz. Abnormal retroperitoneal tethering of the distal terminal ileum to the retroperitoneum was found creating a functional obstruction and was lysed using scissor cautery. The small bowel was reduced of volvulus at the jejunojejunostomy due to abnormal adhesions. Abnormal adhesions to the jejunojejunostomy was identified and divided using vessel sealer. The mesentery small bowel volvulus were reduced. Peritoneal adhesions of the transverse colon to the abdominal wall was similarly lysed including along the left inferior edge using vessel sealer. No herniation of bowel was found along the Pennington defect or jejunojejunostomy mesenteric defect. Extensive lysis of adhesions 1 hr was performed. The small bowel was viable.The robot was undocked. All pneumoperitoneum instruments were evacuated from the abdominal cavity. The incisions were reapproximated using 4-0 Monocryl in an interrupted subcuticular fashion. Please note along the trocar sites, local anesthetic was placed as a field block prior to insertion of all instruments. Exofin was applied to the skin. At the end of the procedure needle, sponge, and instrument count had been verified correct by the electro mechanical technician. The patient was transferred to postanesthesia care unit in stable condition.
[2020-12-05] MEDS ORDERED: HYDROmorphone 1 MG/ML 1 ML SYRINGE IVP ONE ×2 (19:50→19:59)
[2020-12-05 20:56] VITALS: RESP 16
[2020-12-05] MEDS ORDERED: MONTELUKAST 10 MG TAB PO SCH (21:00)
[2020-12-05] MEDS: SIMETHICONE 40 MG/0.6 ML DROPS 2,000 MG/30 ML BOTTLE PO SCH (21:18)
[2020-12-05] MEDS: busPIRone HCl 10 MG TAB PO SCH ×2 (21:18→21:28)
[2020-12-05] MEDS: diphenhydrAMINE 25 MG CAP PO SCH (21:22)
[2020-12-05] MEDS: KETOROLAC 15 MG/ML 1 ML VIAL IVP SCH (23:23)
[2020-12-05] MEDS: ACETAMINOPHEN TAB 325 MG TAB PO SCH (23:24)
[2020-12-06] MEDS: HYDROmorphone 1 MG/ML 1 ML SYRINGE IVP PRN (02:11)
[2020-12-06] MEDS: SODIUM CHLORIDE 0.9% 1,000 ML IV SCH (03:57)
[2020-12-06] MEDS: ALBUTEROL INHALATION PRN ×2 (06:23→08:39)
[2020-12-06 07:47] LABS: Basophils % (A) 0 %; Eosinophils # (A) 0.2 k/uL (0-0.7); Eosinophils % (A) 3 %; HCT 35.6 % (34.0-46.0); HGB 12.3 gm/dL (11.4-16.0); Lymphocytes # (A) 1.6 k/uL (1.0-4.8); Lymphocytes % (A) 27 %; MCH 30.9 pg (25.0-35.0); MCHC 34.4 g/dL (31.0-37.0); MCV 89.9 fL (80.0-100.0); Mean Platelet Volume 7.4; Monocytes # (A) 0.3 k/uL (0-1.0); Monocytes % (A) 5 %; Neutrophils # (A) 3.6 k/uL (1.3-7.7); Neutrophils % (A) 63 %; Platelet Count 269 k/uL (150-450); RBC 3.97 m/uL (3.80-5.40); RDW 14.1 % (11.5-15.5); WBC 5.7 k/uL (3.8-10.6)
[2020-12-06 08:07] VITALS: BP 136/77; PULSE 62; TEMP 98.5
[2020-12-06] MEDS: LORATADINE 10 MG TAB PO SCH (08:07)
[2020-12-06 08:08] LABS: ALT 16 U/L (4-34); AST 31 U/L (14-36); African American GFR (CKD) >90 (>60 ml/min/1.73 sqM); Alkaline Phosphatase 85 U/L (38-126); Anion Gap 10 mmol/L; Blood Urea Nitrogen 5 mg/dL (7-17); Calcium 8.4 mg/dL (8.4-10.2); Carbon Dioxide 21 mmol/L (22-30); Chloride 108 mmol/L (98-107); Glucose 80 mg/dL (74-99); Non-African American GFR(CKD) >90 (>60 ml/min/1.73 sqM); Potassium 3.7 mmol/L (3.5-5.1); Sodium 139 mmol/L (137-145); Total Bilirubin 0.4 mg/dL (0.2-1.3); Total Protein 5.2 g/dL (6.3-8.2)
[2020-12-06] MEDS: PANTOPRAZOLE 40 MG/10 ML VIAL IV SCH (08:09)
[2020-12-06] MEDS: ACETAMINOPHEN TAB 325 MG TAB PO SCH (08:13)
[2020-12-06] MEDS: KETOROLAC 15 MG/ML 1 ML VIAL IVP SCH (08:15)
[2020-12-06] MEDS: SIMETHICONE 40 MG/0.6 ML DROPS 2,000 MG/30 ML BOTTLE PO SCH (08:18)
[2020-12-06] MEDS: SYMBICORT 80-4.5 MCG INHALER INHALATION SCH (08:40)
[2020-12-06] MEDS ORDERED: ENOXAPARIN 30 MG/0.3 ML SYRINGE SQ SCH (09:00)
--- NOTE | 2020-12-06 09:38 | P.DS ---
Providers Date of admission: 12/02/20 04:18 Expected date of discharge: 12/06/20 Attending physician: Júnior Paz MD Consults: 12/04/20 15:37 Consult Physician Routine Consulting Provider: Alda Nuno Consult Reason/Comments: previous gastric bypass. Do you want consulting provider notified?: Already Contacted Primary care physician: [facility] Course: HPI: 50 year old female with COPD, history of Sonia-en-Y surgery Age and comes in with sudden onset nausea or vomiting and abdominal pain she reports that her last meal was around 3 PM before that she was feeling completely fine and then around evening time she started having severe right upper quadrant abdominal pain nonradiating severity sharp in nature associated with repeated nausea and vomiting and chills because of pain. Vomiting is nonbloody, nonbilious, it consisted of food particles of the spicy chips that she has. She claims that she is not passing gases denies any diarrhea. Otherwise she denies any fevers denies any coughing or chest pain denies any trouble breathing denies any sick contacts denies any urinary changes. She claims to be at her baseline status of health up until this evening. She went to [facility] who did initial workup patient received IV fluid and some supportive care., NG tube. Computed tomography scan suggested obstruction around surgical anastomosis site with the small bowel. Patient transferred to our facility for further care Blood work was overall unremarkable except for slightly elevated white count at 11.8 Hospital course and treatment Patient was admitted to the hospital nausea and vomiting. She was treated with supportive care, IV fluids, IV PPI antiemetics and pain control. She was evaluated by surgery. NG tube was placed. CT showed suspected bowel obstruction. She has improved with NG tube and NG tube was subsequently removed. She underwent an EGD which was consistent with: FINDINGS: Squamocolumnar junction unremarkable at 37 cm. Stricture of approximately 15 mm encountered. Chronic gastrojejunal ulceration encountered. Successful balloon dilatation to 15 mm. Cold forceps biopsies of gastric pouch obtained for gastritis She also underwent surgical intervention with lysis of adhesion. OPERATION: 1. Robotic-assisted da Jocy Xi laparoscopic with extensive lysis of adhesions 1 hr Patient is significantly better, symptoms resolved. She will be discharged home on Protonix to follow-up with PCP and with surgery as an outpatient. Diagnoses upon discharge: 1. Small bowel obstruction at the surgical anastomoses 2. History of Sonia-en-Y about 10 years ago 3. COPD compensated without evidence of withdrawal 4. Anxiety 5. Metabolic acidosis 6. Gastrojejunal stricture with chronic ulcer without perforation Gastritis post EGD. Patient Condition at Discharge: Stable Plan - Discharge Summary Discharge Rx Participant: No New Discharge Prescriptions: New Pantoprazole Sodium [Protonix] 40 mg PO DAILY 30 Days #30 tablet.dr Plummer Montelukast Sodium [Singulair] 10 mg PO HS Multivitamins, Thera [Multivitamin (formulary)] 1 tab PO DAILY busPIRone HCl [Buspar] 10 mg PO HS Fluticasone/Salmeterol [Advair 100-50 Diskus] 1 puff INHALATION RT-BID Albuterol Sulfate [Proair Hfa] 2 puff INHALATION RT-Q4H PRN PRN Reason: Shortness Of Breath Loratadine [Claritin] 10 mg PO DAILY Discharge Medication List Albuterol Sulfate [Proair Hfa] 2 puff INHALATION RT-Q4H PRN 12/02/20 [History] Fluticasone/Salmeterol [Advair 100-50 Diskus] 1 puff INHALATION RT-BID 12/02/20 [History] Loratadine [Claritin] 10 mg PO DAILY 12/02/20 [History] Montelukast Sodium [Singulair] 10 mg PO HS 12/02/20 [History] Multivitamins, Thera [Multivitamin (formulary)] 1 tab PO DAILY 12/02/20 [History] busPIRone HCl [Buspar] 10 mg PO HS 12/02/20 [History] Pantoprazole Sodium [Protonix] 40 mg PO DAILY 30 Days #30 tablet. 12/06/20 [Rx] Follow up Appointment(s)/Referral(s): Alvin Rich MD [Primary Care Provider] - 1-2 days Discharge Disposition: HOME SELF-CARE
--- NOTE | 2020-12-06 11:15 | P.PN ---
Subjective Progress Note Date: 12/06/20 CHIEF COMPLAINT: Bowel obstruction HISTORY OF PRESENT ILLNESS: The patient is a 50 year old female status post gastric bypass at [facility] [place] [address]. She reports developed acute onset abdominal pain. She had a nasogastric tube placed. She is passing flatus. She reports history of troubles with epigastric pain following textured foods such as steak and chicken. She reports minimal abdominal cramping with liquids. Patient had EGD with dilation for her dysphagia and epigastric abdominal pain. And also is postop day #1 status post Robotic-assisted da Jocy Xi laparoscopic with extensive lysis of adhesions 1 hr. patient tolerated surgery well. She is tolerating regular diet. She is up and ambulating. She reports that her pain is controlled. She is stable for discharge. She is afebrile. WBC 5.7 PHYSICAL EXAM: VITAL SIGNS: Reviewed GENERAL: Well-developed in no acute distress. HEENT: No sclera icterus. Extraocular movements grossly intact. Moist buccal mucosa. Head is atraumatic, normocephalic. Hears conversational speech. No nasal drainage. NECK: Supple without lymphadenopathy. CHEST: Non-labored respirations and equal bilateral excursions. CARDIOVASCULAR: Palpable 2+ radial pulses. ABDOMEN: Soft. Nondistended. MUSCULOSKELETAL: No clubbing or cyanosis. NEUROLOGIC: No focal or lateralizing signs. Cranial nerves II through XII grossly intact. PSYCH: Appropriate affect. Alert and oriented to person, place and time. SKIN: Well perfused. Good skin turgor. ASSESSMENT: 1. Epigastric abdominal pain including generalized abdominal pain 2. Abnormal computed tomography scan for anastomotic obstruction 3. History of gastric bypass 4. Small bowel obstruction 5. Chronic obstructive pulmonary disease 6. Depressive disorder 7. Anxiety disorder 8. Omental adhesions abdominal wall 9. Peritoneal adhesions 10. Dysphagia. 11. Epigastric abdominal pain 12. Gastrojejunal stricture with chronic ulcer without perforation 13. Gastritis 14. Diaphragmatic hiatal hernia PLAN: -Patient can be discharged from surgical standpoint -She can continue with regular diet Physician Premium Note Interest Calculator Clerk note has been reviewed by physician. Signing provider agrees with the documented findings, assessment, and plan of care. CHIEF COMPLAINT: Objective - Vital Signs Vital signs: Vital Signs Temp 98.5 F 12/06/20 07:56 Pulse 62 12/06/20 07:56 Resp 16 12/06/20 07:56 BP 136/77 12/06/20 07:56 Pulse Ox 99 12/06/20 07:56 Intake & Output 12/05/20 12/06/20 12/06/20 18:59 06:59 18:59 Intake Total 1250 0 Output Total 355 Balance 1250 -355 Intake: IV 1250 0 Output: Urine 350 Estimated Blood Loss 5 Other: Voiding Method Toilet Toilet # Voids 1 # Bowel Movements 1 - Labs CBC & Chem 7: 12/06/20 06:29 12/06/20 06:29 Labs: Abnormal Lab Results - Last 24 Hours (Table) 12/06/20 Range/Units 06:29 Chloride 108 H (98-107) mmol/L Carbon Dioxide 21 L (22-30) mmol/L BUN 5 L (7-17) mg/dL Total Protein 5.2 L (6.3-8.2) g/dL Albumin 3.0 L (3.5-5.0) g/dL
== END 2020-12-06 11:50 | disposition home or self-care (01) | DRG 336 ==
LOC: EC 03:47 → 6PED 04:18
PROVIDERS: ADMIT Internal Medicine; ATTEND Internal Medicine
PROC: 8E0W4CZ Robotic Assisted Procedure of Trunk Region, Percutaneous Endoscopic Approach (ICD-10-PCS; principal; 2020-12-05 08:20)
PROC: 0DNL4ZZ Release Transverse Colon, Percutaneous Endoscopic Approach (ICD-10-PCS; principal; 2020-12-05 08:20)
PROC: 0DNA4ZZ Release Jejunum, Percutaneous Endoscopic Approach (ICD-10-PCS; principal; 2020-12-05 08:20)
PROC: 0DB68ZX Excision of Stomach, Via Natural or Artificial Opening Endoscopic, Diagnostic (ICD-10-PCS; 2020-12-05 08:20)
PROC: 0D747ZZ Dilation of Esophagogastric Junction, Via Natural or Artificial Opening (ICD-10-PCS; 2020-12-05 08:20)
DX: K95.89 Other complications of other bariatric procedure (principal); K56.609 Unspecified intestinal obstruction, unspecified as to partial versus complete obstruction; E87.2 Acidosis; Q43.8 Other specified congenital malformations of intestine; K81.1 Chronic cholecystitis; J44.9 Chronic obstructive pulmonary disease, unspecified; Z20.822 Contact with and (suspected) exposure to COVID-19; K28.7 Chronic gastrojejunal ulcer without hemorrhage or perforation; K44.9 Diaphragmatic hernia without obstruction or gangrene; K29.70 Gastritis, unspecified, without bleeding; F41.9 Anxiety disorder, unspecified; F32.9 Major depressive disorder, single episode, unspecified; K66.0 Peritoneal adhesions (postprocedural) (postinfection); R13.10 Dysphagia, unspecified; Z79.899 Other long term (current) drug therapy; Z98.51 Tubal ligation status; Z87.891 Personal history of nicotine dependence
CPT/HCPCS: 43239; 43249; 76705; 80053; 85025; 87636; 88305; 94640; 99284

== ENCOUNTER → 2020-12-14 | Outpatient (CLI) | payer BC ==
[2020-12-14 15:31] VITALS: BP 145/93; PULSE 67; RESP 18; TEMP 98.6; BMI 28.3
--- NOTE | 2020-12-14 16:02 | P.HPBAR ---
Bariatric H&P - History & Physicial H&P Date: 12/14/20 History & Physicial: Visit/CC: initial visit Patient initial contact: Initial weight: Initial weight in pounds: Height: 5 ft 5 in Initial BMI: Last weight: Current weight: 77.111 kg Current weight in pounds: 170.00 Current BMI: 28.3 Pratt body weight (based on NIH guidelines): 56.699 kg Excess body weight loss: The patient is a 50 year-old F who presents for Bariatric Assessment. HPI: She is feeling better. She had a gastric bypass. Highest weight 250 pounds. Gallbladder is bad. She reports everything is working. Needs bariatric has paniculitis. Plan for re-introduce into program. Labs pending. She was down to 125 pounds. She was maintained at 140 to 150 pounds. Labs Panniculectomy Nystatin prescribed. Past Medical History Past Medical History: Asthma, COPD History of Any Multi-Drug Resistant Organisms: None Reported Past Surgical History: Bariatric Surgery, Tubal Ligation Additional Past Surgical History / Comment(s): BARIATRIC SURGERY (Bypass) (01/2010) IN [place] 7 YRS AGO - DR CALLE (Dr. Blake). Past Anesthesia/Blood Transfusion Reactions: No Reported Reaction Past Psychological History: Anxiety Smoking Status: Former smoker Past Alcohol Use History: Occasional Past Drug Use History: None Reported - Past Family History Family Family Medical History: No Reported History Surgical - Exam Vital Signs Temp Pulse Resp BP 98.6 F 67 18 145/93 12/14/20 15:21 12/14/20 15:21 12/14/20 15:21 12/14/20 15:21 Bariatric Checklist Checklist: Plan: Checklist: EGD: 1. Hiatal hernia: 2. H. Pylori: HgbA1c: Vitamin D: Smoking: Primary care physician referral: Dr. Rich ([facility]) ([place]) Psychiatry clearance: Cardiology clearance: Sleep study: Diet journal: VTE risk score: VTE risk level: Rehab needs at discharge:
[2020-12-14 17:18] LABS: HCT 44.6 % (34.0-46.0); HGB 14.1 gm/dL (11.4-16.0); MCH 28.3 pg (25.0-35.0); MCHC 31.5 g/dL (31.0-37.0); Mean Platelet Volume 6.6; RBC 4.96 m/uL (3.80-5.40); RDW 14.1 % (11.5-15.5); WBC 6.4 k/uL (3.8-10.6)
[2020-12-14 17:19] LABS: Platelet Count 546 k/uL (150-450)
[2020-12-14 17:24] LABS: Partial Thromboplastin Time 22.4 sec (22.0-30.0); Prothrombin Time 10.3 sec (9.0-12.0)
[2020-12-15 01:38] LABS: Hemoglobin A1C 5.1 % (4.0-6.0)
[2020-12-15 04:08] LABS: % Iron Saturation 19.05 (12.00-45.00); African American GFR (CKD) 98.9 (60.0-200.0); Albumin 4.7 g/dL (3.80-4.90); Albumin/Globulin Ratio 2.61 (1.60-3.17); Anion Gap 10.8 mmol/L (4.00-12.00); BUN/Creat Ratio 11.25 Ratio (12.00-20.00); Calcium 9.8 mg/dL (8.7-10.3); Carbon Dioxide 28.2 mmol/L (21.6-31.8); Chol/HDL Ratio 2.59; Globulin 1.8 g/dL (1.6-3.3); LDL Cholesterol,Calculated 83.4 mg/dL (0.0-131.0); Magnesium 2.1 mg/dL (1.5-2.4); Non-African American GFR(CKD) 85.4 (60.0-200.0); Phosphorus 4.9 mg/dL (2.4-5.1); Potassium 5.3 mmol/L (3.5-5.5); Total Bilirubin 0.3 mg/dL (0.2-1.2); Total Protein 6.5 g/dL (6.2-8.2); VLDL Calculation 16.6 mg/dL (5.00-40.00)
[2020-12-15 04:36] LABS: Ferritin 14.6 ng/mL (10.0-291.0); Folate, Serum 14.4 ng/mL
[2020-12-16 12:26] LABS: Zinc, Serum 96 ug/dL (60-130)
[2020-12-19 05:59] LABS: Vit B1(Thiamine) 69 ug/L (38-122)
[2020-12-19 07:17] LABS: Vitamin A 45 ug/dL (38-106)
[2020-12-19 19:32] LABS: Selenium 127 mcg/L (63-160)
== END ==
LOC: BARWHC3 14:00
PROVIDERS: ATTEND Surgery Plastic and Reconstructive Surgery
DX: E66.01 Morbid (severe) obesity due to excess calories (principal); E89.1 Postprocedural hypoinsulinemia; D50.8 Other iron deficiency anemias; E44.0 Moderate protein-calorie malnutrition; E55.9 Vitamin D deficiency, unspecified; K74.1 Hepatic sclerosis; N19 Unspecified kidney failure; K50.90 Crohn's disease, unspecified, without complications; Z68.28 Body mass index [BMI] 28.0-28.9, adult; Z91.09 Other allergy status, other than to drugs and biological substances
CPT/HCPCS: 36415; 80053; 80061; 82306; 82525; 82607; 82728; 82746; 83036; 83540; 83550; 83735; 83970; 84100; 84134; 84255; 84425; 84443; 84590; 84630; 85027; 85610; 85730; 93005; 99211